=== PATIENT | male | born 1975 | race Caucasian/White ===

== ENCOUNTER 2020-02-25 09:47 | Emergency (ER) | payer SELFPAY | END 2020-02-25 10:28 | disposition home or self-care (01) | LOC: BURERS 09:47 | DX: S76.011A Strain of muscle, fascia and tendon of right hip, initial encounter (principal); V19.9XXA Pedal cyclist (driver) (passenger) injured in unspecified traffic accident, initial encounter | CPT/HCPCS: 99281 ==

== ENCOUNTER → 2020-03-09 | Emergency (ER) | payer SELFPAY ==
[~2020-03-09] MED LIST: Ketorolac Tromethamine 60 MG/2 ML VIAL ONE
--- NOTE | 2020-03-09 17:29 | RAD ---
RIGHT HIP TWO VIEWS: 03/09/20 No fracture or dislocation was seen. The joint space is normal in width. The articular surfaces are s mooth. The adjacent pubic ring appears intact. IMPRESSION: No acute bony findings. POS: HOME
== END ==
LOC: BURERS 07:59
DX: S76.211A Strain of adductor muscle, fascia and tendon of right thigh, initial encounter (principal); V29.9XXA Motorcycle rider (driver) (passenger) injured in unspecified traffic accident, initial encounter; Y93.I9 Activity, other involving external motion
CPT/HCPCS: 96372; J1885

== ENCOUNTER 2020-04-07 07:05 | Emergency (ER) | payer SELFPAY | END 2020-04-07 07:49 | disposition home or self-care (01) | LOC: BURERS 07:05 | DX: R07.89 Other chest pain (principal) | CPT/HCPCS: 99284 ==

== ENCOUNTER 2020-08-12 08:08 | Emergency (ER) | payer OTHER, SELFPAY | END 2020-08-12 08:51 | disposition home or self-care (01) | LOC: BURERS 08:08 | DX: K43.9 Ventral hernia without obstruction or gangrene (principal); K64.4 Residual hemorrhoidal skin tags | CPT/HCPCS: 82274; 99284 ==

== ENCOUNTER 2021-02-24 16:58 | Emergency (ER) | payer SELFPAY | END 2021-02-24 18:30 | disposition home or self-care (01) | LOC: BURERS 16:58 | DX: S83.92XA Sprain of unspecified site of left knee, initial encounter (principal); X58.XXXA Exposure to other specified factors, initial encounter ==

== ENCOUNTER 2022-07-27 09:39 | Emergency (ER) | payer SELFPAY ==
[2022-07-27 10:11] LABS: #Basophils 0.1 thou/uL (0.0-0.2); #Eosinphils 0.1 thou/uL (0.0-0.7); #Lymphocytes 1.9 thou/uL (1.20-3.40); #Monocytes 0.7 thou/uL (0.11-0.59); #Neutrophils 3.4 thou/uL (1.40-6.50); %Basophils 1.4 % (0.0-1.0); %Eosinophils 1.8 % (0.0-10.0); %Lymphocytes 30.8 % (21.0-51.0); %Monocytes 10.6 % (0.0-10.0); %Neutrophils 55.3 % (42.0-75.0); Hemoglobin 16.5 g/dL (14.0-18.0); Mean Corpuscular Hemoglobin 30.7 pg (27.0-31.0); Mean Corpuscular Volume 87.6 fl (78.0-98.0); Mean Platelet Volume 9.3 fL (7.4-10.4); Platelet Count 246 10x3/uL (130-400); RBC Distribution Width 11.6 % (11.5-14.5); Red Blood Cell (RBC) Count 5.39 mill/uL (4.70-6.10); White Blood Cell (WBC) Count 6.2 10x3/uL (4.8-10.8)
[2022-07-27 10:30] LABS: ALT (SGPT) 44 U/L (8-55); AST (SGOT) 27 U/L (5-34); Albumin 4.6 g/dL (3.5-5.0); Alkaline Phosphatase 88 U/L (40-110); Anion Gap 14 mmol/L (10-20); BUN (Urea Nitrogen) 16 mg/dL (8.9-20.6); Bilirubin, Total 0.5 mg/dL (0.2-1.2); Calc. Creatinine Clearance 0 mL/min (70-130); Calcium 9.1 mg/dL (7.8-10.44); Carbon Dioxide 21 mmol/L (22-29); Chloride 108 mmol/L (98-107); Estimated GFR 86; Globulin 3.4 g/dL (2.4-3.5); Glucose 104 mg/dL (70-105); Potassium 4.1 mmol/L (3.5-5.1); Sodium 139 mmol/L (136-145)
== END 2022-07-27 10:30 | disposition home or self-care (01) ==
LOC: BURERS 09:39
DX: K62.5 Hemorrhage of anus and rectum (principal)
CPT/HCPCS: 36415; 80053; 82274; 85025; 99283

== ENCOUNTER 2022-10-12 07:53 | Emergency (ER) | payer OTHER, SELFPAY | END 2022-10-12 08:48 | disposition home or self-care (01) | LOC: BURERS 07:53 | DX: S62.336A Displaced fracture of neck of fifth metacarpal bone, right hand, initial encounter for closed fracture (principal); W01.10XA Fall on same level from slipping, tripping and stumbling with subsequent striking against unspecified object, initial encounter ==

== ENCOUNTER 2024-04-22 10:51 | Emergency (ER) | payer BC, OTHER, SELFPAY ==
[2024-04-22] MEDS ORDERED: Ketorolac Tromethamine 30 MG (1 mL) VIAL ONE (11:09)
== END 2024-04-22 11:35 | disposition home or self-care (01) ==
LOC: BURERS 10:51
DX: S29.011A Strain of muscle and tendon of front wall of thorax, initial encounter (principal); M94.0 Chondrocostal junction syndrome [Tietze]; X50.0XXA Overexertion from strenuous movement or load, initial encounter
CPT/HCPCS: 71046; 93005; 96372; J1885